=== PATIENT | female | born 1955 | race Caucasian/White ===

== ENCOUNTER → 2019-04-14 | Day surgery (SDC) | payer MEDICARE, OTHER ==
[~2019-04-14] VITALS: Ht 164.4 cm; Wt 59.4 kg
[~2019-04-14] MED LIST: ACIPHEX20 MG PO; AMBIEN5 MG PO; AMITRIPTYLINE25 MG PO; LINZESS290 MC1 PO; METFORMIN HCL500 MG PO; METOPROLOL SUCC25 M2 PO; NEURONTIN300 MG PO; NEURONTIN600 MG PO; NORTRIPTYLINE10 MG PO; PANTOPRAZOLE SO20 MG PO; PRINIVIL10 MG PO; TRAMADOL HCL50 MG PO; Zestril,Prinivi40 MG PO
--- NOTE | ~2019-04-14 | O ---
[place], [place] OPERATIVE NOTE NAME: JANNETH JALLOH UNIT #: [id number] ROOM: DOCTOR: FLAQUITA PADILLA MD BIRTHDATE: [birth year] DOS: 04/14/2019 INDICATIONS: This is a 64-year-old patient who was presented with chief complaint of epigastric distress, reflux, and history of colonic screening. ALLERGIES: No known medication. FAMILY HISTORY: Noncontributory. PAST SURGICAL HISTORY: ____ septum repair, coronary artery stent and ankle repair. PAST MEDICAL HISTORY: GERD, hypertension, and diabetes. SOCIAL HISTORY: Smoker. Social alcohol consumer. PROCEDURE: Today's procedure part of investigation is panendoscopy and colonoscopy. PREMEDICATION: Propofol. SCOPE: Olympus forward-viewing gastroscope Q10 video. REPORT: After putting the patient is left lateral position, application of lubricant to the scope, the scope was introduced. Thereafter, under direct visualization, advanced through the length of esophagus without difficulty. Esophagus, cervical, thoracic, distally carefully examined. Esophageal moniliasis was seen. [place] for fungal study was done. Gastric pouch was entered. Gastritis seen. Antral biopsy obtained. Scope was withdrawn, back to the lesser curvature, reintroduced towards the duodenal bulb second, third part within normal limits. Antral biopsy obtained. The patient extubated. Tolerated the procedure well. IMPRESSION: Esophageal moniliasis, status post brush biopsy. Gastritis, status post biopsy. PLAN AND DISCUSSION: I will be continuing with the pantoprazole 40 mg a day. Awaiting for fungal study. If positive, Diflucan will be started here. Furthermore, we are going to do colonoscopy. PROCEDURE #2: INDICATION: The patient has presented with chief complaint of colonic screening and ____. PROCEDURE: Today's procedure part of investigation is colonoscopy. PREMEDICATION: Propofol. SCOPE: Olympus forward-viewing colonoscope 10L video. [place], [place] OPERATIVE NOTE NAME: JANNETH JALOLH UNIT #: [id number] ROOM: DOCTOR: FLAQUITA PADILLA MD BIRTHDATE: [birth year] DESCRIPTION OF PROCEDURE: After putting the patient in left lateral position and application of lubricant to the scope, the scope was introduced. Thereafter, under direct visualization, advanced through the length of colon without difficulty. Base of the cecum explored, appendiceal orifice identified. Ileocecal valve defined. Sessile polypoid lesion with ascending colon, piecemeal polypectomy removed. The patient tolerated the procedure well. IMPRESSION: Sessile colonic polyp, status post piecemeal polypectomy. PLAN: High fiber diet. ACTIVITY: Ad adriana. FOLLOWUP: As outpatient followup in [facility]. Thank you very much indeed. FLAQUITA PADILLA MD CM:OPRECORD:OPERATIVE NOTE [id number] FLAQUITA PADILLA MD 04/14/19 1146 interface
[2019-04-14 09:30] VITALS: BP 161/80
[2019-04-14 10:11] VITALS: BP 115/70
[2019-04-14 10:24] VITALS: BP 122/80
[2019-04-14 10:41] VITALS: BP 181/70
== END | disposition home or self-care (01) ==
LOC: SDC 04-09 09:30
DX: Z12.11 Encounter for screening for malignant neoplasm of colon (principal); K29.50 Unspecified chronic gastritis without bleeding; D12.2 Benign neoplasm of ascending colon; I10 Essential (primary) hypertension; F41.9 Anxiety disorder, unspecified; E11.9 Type 2 diabetes mellitus without complications; K21.0 Gastro-esophageal reflux disease with esophagitis; I25.10 Atherosclerotic heart disease of native coronary artery without angina pectoris; I25.2 Old myocardial infarction; F17.210 Nicotine dependence, cigarettes, uncomplicated; Z98.890 Other specified postprocedural states; Z79.899 Other long term (current) drug therapy

== ENCOUNTER 2023-05-25 22:59 | Emergency (ER) | payer MEDICARE, OTHER ==
[~2023-05-25] VITALS: Wt 65.3 kg
[2023-05-25 23:36] LABS: BASO % 0.4 % (0.0-1.0); EOS # 0.1 10*3/uL (0.0-0.4); EOS % 0.8 % (1.0-4.0); HEMATOCRIT 30.3 % (37.0-47.0); LYMPH # 2.5 10*3/uL (1.3-4.4); LYMPH % 29.8 % (27.0-41.0); MEAN CELL VOLUME 91.5 fl (81.0-99.0); MEAN CORPUSCULAR HGB 30.8 pg (27.0-31.0); MEAN CORPUSCULAR HGB CONC 33.7 g/dl (33.0-37.0); MONO # 0.6 10*3/uL (0.1-1.0); MONO % 7.4 % (3.0-9.0); NEUT % 60.3 % (47.0-73.0); PLATELET COUNT AUTOMATED 158 10*3/uL (130-400); RED BLOOD COUNT 3.31 10*6/uL (4.10-5.10); RED CELL DISTRI WIDTH 13.1 % (0-14.5); WHITE BLOOD COUNT 8.3 10*3/uL (4.8-10.8)
[2023-05-25 23:49] LABS: ACT PARTIAL THROMBO TIME 28.4 SECONDS (20.0-32.1)
[2023-05-25 23:58] LABS: ALKALINE PHOSPHATASE 66 U/L (46-116); BUN 8 mg/dl (9-23); CHLORIDE 101 mmol/L (98-107); ETHYL ALCOHOL 246.9 mg/dl (<3); LIPASE 28 U/L (12-53); POTASSIUM 3.4 mmol/L (3.4-5.1); SGPT/ALT 19 U/L (5-49); TOTAL PROTEIN 5.8 gm/dL (6.0-8.0)
[2023-05-25 23:58] LABS: BILIRUBIN Negative (Negative); BLOOD 1+ (Negative); CLARITY Clear (Clear); COLOR Yellow (Yellow); GLUCOSE Negative (Negative); KETONE Negative (Negative); LEUKO ESTERASE Trace (Negative); NITRITE Negative (Negative); UROBILINOGEN 0.2 E.U./dl (0.0-1.0)
== END 2023-05-26 01:35 | disposition short-term general hospital (02) ==
LOC: ED 22:59
PROVIDERS: Internal Medicine
DX: I62.00 Nontraumatic subdural hemorrhage, unspecified (principal); S42.212A Unspecified displaced fracture of surgical neck of left humerus, initial encounter for closed fracture; S12.200A Unspecified displaced fracture of third cervical vertebra, initial encounter for closed fracture; S22.42XA Multiple fractures of ribs, left side, initial encounter for closed fracture; S22.31XA Fracture of one rib, right side, initial encounter for closed fracture; S22.029A Unspecified fracture of second thoracic vertebra, initial encounter for closed fracture; T79.7XXA Traumatic subcutaneous emphysema, initial encounter; F10.920 Alcohol use, unspecified with intoxication, uncomplicated; Z79.899 Other long term (current) drug therapy; Z95.5 Presence of coronary angioplasty implant and graft; W10.8XXA Fall (on) (from) other stairs and steps, initial encounter; Y93.89 Activity, other specified; Y92.89 Other specified places as the place of occurrence of the external cause; Y90.8 Blood alcohol level of 240 mg/100 ml or more; Y99.8 Other external cause status